=== PATIENT | female | born 1975 | race Caucasian/White ===

== ENCOUNTER 2018-04-19 22:36 | Emergency (ER) | payer MEDICAID ==
[2018-04-20 00:08] VITALS: BP 105/60
== END 2018-04-20 00:08 | disposition home or self-care (01) ==
LOC: ED 22:36
DX: N39.0 Urinary tract infection, site not specified (principal)
CPT/HCPCS: J0696; J1885

== ENCOUNTER 2018-12-02 17:12 | Emergency (ER) | payer MEDICAID ==
[~2018-12-02] VITALS: Ht 157.5 cm; Wt 50.3 kg
[2018-12-02 17:22] VITALS: Ht 157.5 cm; Wt 50.3 kg
[2018-12-02 18:57] LABS: UA SPECIFIC GRAVITY <=1.005 (1.005-1.035); microscopic required? YES; urine erythrocyte 1+ (NEGATIVE)
[2018-12-02 19:26] VITALS: BP 143/81
== END 2018-12-02 19:26 | disposition home or self-care (01) ==
LOC: ED 17:12
PROVIDERS: Emergency Medicine
DX: S39.012A Strain of muscle, fascia and tendon of lower back, initial encounter (principal); K59.00 Constipation, unspecified; Z98.890 Other specified postprocedural states; X58.XXXA Exposure to other specified factors, initial encounter; Y93.89 Activity, other specified; Y92.89 Other specified places as the place of occurrence of the external cause; Y99.8 Other external cause status